=== PATIENT | female | born 1980 | race Caucasian/White ===

== ENCOUNTER → 2016-11-23 | Outpatient (CLI) | payer BC ==
[2016-11-23 10:20] LABS: CH 34.5; CHCM 33.7; HCT 36.8 % (34.0-46.0); HDW 3.06; HGB 12.1 gm/dL (11.4-16.0); MCHC 32.9 g/dL (31.0-37.0); MCV 103.4 fL (80.0-100.0); Macrocytosis Slight; Mean Platelet Volume 7.1; RBC 3.56 m/uL (3.80-5.40); RDW 14.6 % (11.5-15.5); WBC 7.1 k/uL (3.8-10.6)
== END | disposition home or self-care (01) ==
LOC: LABWHC1 08:30
PROVIDERS: ATTEND Obstetrics & Gynecology
DX: Z34.82 Encounter for supervision of other normal pregnancy, second trimester (principal); Z3A.00 Weeks of gestation of pregnancy not specified
CPT/HCPCS: 36415; 82950; 85027

== ENCOUNTER → 2016-11-29 | Outpatient (CLI) | payer BC ==
[2016-11-29 11:29] LABS: Glucose 3 Hour, Gest 74 mg/dL
== END | disposition home or self-care (01) ==
LOC: LABWHC1 07:28
PROVIDERS: ATTEND Obstetrics & Gynecology
DX: O24.419 Gestational diabetes mellitus in pregnancy, unspecified control (principal); Z3A.00 Weeks of gestation of pregnancy not specified
CPT/HCPCS: 36415; 82951; 82952

== ENCOUNTER 2017-02-13 14:42 | Inpatient (IN) | payer BC ==
[2017-02-13 15:50] LABS: Basophils # (A) 0.1 k/uL (0-0.2); Basophils % (A) 1 %; CHCM 35.2; Eosinophils # (A) 0.2 k/uL (0-0.7); Eosinophils % (A) 3 %; HCT 37.7 % (34.0-46.0); HDW 2.64; HGB 13.4 gm/dL (11.4-16.0); Luc # (Auto) 0.15; Luc % (Auto) 2; Lymphocytes # (A) 1.1 k/uL (1.0-4.8); Lymphocytes % (A) 13 %; MCH 34.6 pg (25.0-35.0); MCHC 35.5 g/dL (31.0-37.0); MCV 97.3 fL (80.0-100.0); Mean Platelet Volume 9.8; Monocytes # (A) 0.5 k/uL (0-1.0); Monocytes % (A) 5 %; Neutrophils # (A) 6.6 k/uL (1.3-7.7); Neutrophils % (A) 77 %; RBC 3.87 m/uL (3.80-5.40); RDW 13.6 % (11.5-15.5); WBC 8.6 k/uL (3.8-10.6); WBC (Perox) 8.39
[2017-02-13 15:59] LABS: INR 0.9 (<1.1); Partial Thromboplastin Time 22.9 sec (22.0-30.0); Prothrombin Time 9.4 sec (9.0-12.0)
[2017-02-13 16:05] LABS: ALT 36 U/L (9-52); AST 31 U/L (14-36); LDH 459 U/L (313-618); Non-African American GFR(MDRD) >60 (>60 ml/min/1.73 sqM); Uric Acid 5.7 mg/dL (3.7-7.4)
[2017-02-13] MEDS ORDERED: CITRIC ACID-SODIUM CITRATE 15 ML CUP PO ONE ×2 (16:15→16:40)
[2017-02-13 16:23] VITALS: BMI 27.4
[2017-02-13] MEDS ORDERED: LACTATED RINGERS 1,000 ML IV SCH ×2 (16:40→16:45)
[2017-02-13] MEDS ORDERED: ceFAZolin 2 GM in SODIUM CHLORIDE 0.9% 100 ML IVPB ONE (16:40)
[2017-02-13] MEDS ORDERED: LACTATED RINGERS 1,000 ML IV ONE (16:40)
[2017-02-13 16:49] LABS: Appearance,Urine Clear (Clear); Bacteria,Urine Occasional /hpf; Bilirubin,Urine Negative (Negative); Glucose,Urine (UA) Negative (Negative); Ketones,Urine Negative (Negative); Leukocyte Esterase,Urine Trace (Negative); Mucus,Urine Rare /hpf; Nitrite,Urine Negative (Negative); Particle Count 4128; Protein,Urine 2+ (Negative); RBC,Urine 1 /hpf (0-5); Specific Gravity,Urine 1.009 (1.001-1.035); Squamous Epithelial Cell,Urine 1 /hpf (0-4); UA Billing (MACRO vs. MICRO) MICRO; Urobilinogen,Urine <2.0 mg/dL (<2.0); WBC,Urine 1 /hpf (0-5)
[2017-02-13] MEDS ORDERED: OXYTOCIN 10 UNIT/ML 1 ML VIAL ONE (17:13)
[2017-02-13] MEDS ORDERED: NALBUPHINE 10 MG/ML AMPUL ONE (17:13)
[2017-02-13] MEDS ORDERED: ONDANSETRON 4 MG/2 ML VIAL ONE (17:13)
[2017-02-13] MEDS ORDERED: MORPHINE SULFATE (PF) 0.3 MG/0.3 ML SYR ONE (17:13)
[2017-02-13] MEDS ORDERED: NALOXONE 0.4 MG/ML 1 ML VIAL IV PRN (17:37)
[2017-02-13] MEDS ORDERED: ONDANSETRON 4 MG/2 ML VIAL IVP PRN (17:37)
[2017-02-13] MEDS ORDERED: MORPHINE SULFATE 4 MG/ML SYRINGE IVP PRN (17:37)
[2017-02-13] MEDS ORDERED: diphenhydrAMINE 50 MG/ML 1 ML VIAL IVP PRN ×2 (17:37→17:59)
[2017-02-13] MEDS ORDERED: ACETAMINOPHEN TAB 325 MG TAB PO PRN (17:59)
[2017-02-13] MEDS ORDERED: IBUPROFEN 600 MG TAB PO PRN (17:59)
[2017-02-13] MEDS ORDERED: ZOLPIDEM 5 MG TAB PO PRN (17:59)
[2017-02-13] MEDS ORDERED: Acetaminophen-Codeine 300-30mg TAB PO PRN ×2 (17:59)
[2017-02-13] MEDS ORDERED: SIMETHICONE 80 MG CHEWABLE PO PRN (17:59)
[2017-02-13] MEDS ORDERED: METOCLOPRAMIDE 5 MG/ML 2 ML VIAL IVP PRN (17:59)
[2017-02-13] MEDS ORDERED: diphenhydrAMINE 25 MG CAP PO PRN (17:59)
[2017-02-13] MEDS ORDERED: OXYTOCIN 20 UNITS/1000 ML NS 1,000 ML IV SCH (18:00)
--- NOTE | 2017-02-13 18:24 | P.HPOB ---
History of Present Illness H&P Date: 02/13/17 Chief Complaint: Proteinuria This patient is a pleasant 36-year-old 2 para 0 female estimated date of confinement 03/03/2017 estimated gestational age 37-3/7 weeks who presented to my office this afternoon for routine visit. She has urine showed 2 + protein in the office. Patient is without symptoms and her blood pressure in the office was normal. Patient sent to labor and delivery for preeclampsia evaluation and blood pressures here were significantly elevated 160s to 190s over 80s to 100s. Patient was scheduled for already secondary to previous uterine perforation. Patient's also was complicated by advanced maternal age however she did have a normal level III ultrasound and amniocentesis. 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 Blood type: A+ History of Any Multi-Drug Resistant Organisms: None Reported Additional Past Surgical History / Comment(s): oral surgery. D&C (uterine perforation), laparoscopy Past Anesthesia/Blood Transfusion Reactions: No Reported Reaction Past Psychological History: No Psychological Hx Reported Smoking Status: Never smoker Past Alcohol Use History: Occasional Past Drug Use History: None Reported - Past Family History Mother Family Medical History: Cancer Medications and Allergies Home Medications Medication Instructions Recorded Confirmed Type Acetaminophen with Codeine 1 tab PO Q4H PRN 12/09/15 12/09/15 History [Tylenol w/codeine #3] Ibuprofen [Motrin] 800 mg PO Q6HR PRN 12/09/15 12/09/15 History Allergies Allergy/AdvReac Type Severity Reaction Status Date / Time No Known Allergies Allergy Verified 12/07/15 16:47 Exam - Vital Signs Vital signs: Vital Signs Temp Pulse Resp BP 02/13/17 16:11 98.2 F 68 16 143/90 Intake and Output 02/13/17 02/13/17 02/13/17 06:59 14:59 22:59 Other: Weight 72.575 kg Patient Weight 02/14/17 06:59 Weight 72.575 kg - OBG Physical Exam Abdomen: bowel sounds normal, no diffuse tenderness, no bruit present, no guarding noted, no hepatomegaly, no splenomegaly, no mass Vulva: both: normal Vagina: normal moisture, no discharge Cervix: no lesion (X is closed), no discharge Uterus: enlarged Results blood work shows she is A positive, rubella immune, hepatitis B negative, RPR nonreactive, HIV nonreactive, group B strep was positive, Glucola was 141 with a normal three-hour gtt. Patient had a maternal 21 was 46 XY. Result Diagrams: 02/13/17 15:35 02/13/17 15:35 Abnormal Lab Results - Last 24 Hours (Table) 02/13/17 02/13/17 Range/Units 15:22 15:35 Plt Count 132 L (150-450) k/uL Urine Protein 2+ H (Negative) Ur Leukocyte Esterase Trace H (Negative) Urine Bacteria Occasional H (None) /hpf Urine Mucus Rare H (None) /hpf Assessment and Plan (1) Third trimester Narrative/Plan: This is a pleasant 36-year-old 2 para 0 female 37-5/7 weeks' gestation with severe preeclampsia at term. Patient has a history of a fundal uterine perforation requiring section. Plan at this time is primary low transverse section and magnesium sulfate prophylaxis. Treat her blood pressure as needed with labetalol. Patient and I have discussed the surgery and risks including risks of infection, bleeding, possible injury bowel, bladder , vessels, and/or other organs. All the patient's questions are answered written consent is obtained. Status: Acute (2) Preeclampsia Status: Acute (3) Uterine perforation Status: Acute
--- NOTE | 2017-02-13 18:33 | P.OP ---
Date of Procedure: 02/13/17 Preoperative Diagnosis: #1: 37-3/7 week intrauterine . #2: Severe preeclampsia. #3: History of previous uterine perforation requiring section. Postoperative Diagnosis: #1: Same Procedure(s) Performed: Primary low transverse section Implants: Anesthesia: spinal Surgeon: Clifford Carpenter Photograph Developer #1: Tito Moses Estimated Blood Loss (ml): 800 Pathology: other (Central) Condition: stable Disposition: floor Indications for Procedure: Please see dictated H&P for intimate details of this patient's admission. Brief summary this is a pleasant 36-year-old 2 para 0 female 37-3/7 weeks gestation admitted from my office for evaluation of proteinuria is found to have severe preeclampsia. Patient has a previous uterine perforation and was scheduled for a section for delivery. My recommendations are to proceed at this time with immediate delivery secondary to her significant hypertension. Patient does understand the surgery and risks including risks of infection, bleeding, possible injury bowel, bladder, vessels, and/or other organs. She understands risk of DVT and pulmonary embolism. All the patient's questions are answered written consent is obtained. Operative Findings: This is a vigorous viable male infant Apgars are 9 and 9 delivery time is 1732 hrs. Evidence of previous uterine perforation in the left anterior uterus ( healed). Description of Procedure: This patient has a Lopez catheter placed to straight drain. She subsequently taken to the operating room where she sat up and spinal anesthetic is administered without incident. With adequate level of anesthesia she's abdominal prep and drape. Scalpels then taken and a Pfannenstiel skin incision is then made. A second scalpel is taken down the fascia the fascia scored with a knife. Fascial incision is extended bilaterally using the Velarde scissors. Fascia is then dissected off the rectus muscles sharply. Rectus muscles are and the peritoneum was identified and entered sharply. Peritoneum is extended superior and inferior without difficulty. Bladder blade is then placed. Bladder peritoneum was taken sharply off the lower uterine segment. Scalpels and taken a low transverse uterine incision is then made. Using a hemostat I gently into the uterine cavity is loss of clear fluid. This incision is extended bluntly. The 's head is then guided through the incision with fundal pressure with delivery of the infant's head. Mouth and nares are bulb suctioned. There is a nuchal cord 1 which is easily reduced. We then have deliver the anterior and posterior shoulder and rest this infant's body. This is a vigorous viable male Apgars are 9 and 9 delivery time was 1732 hrs. After delivery of the infant the umbilical cord is doubly clamped and cut appears to be trivascular. The placenta is then manually extracted intact. The uterus is then externalized. Uterine incision demarcated with Ramon clamps. Uterine incision then closed using 0 Vicryl running locked fashion 2 layers. Excellent hemostasis is noted. Bladder peritoneum was then reapproximated using a 3-0 Vicryl. Excess fluid is removed from the abdomen and pelvis. Tubes and ovaries appear normal for term gestation. Approximately 1 cm area on the anterior fundal portion of the uterus with evidence of previous uterine perforation this is healed. Uterus placed back into the abdomen. The parietal peritoneum was then identified and closed using 0 Vicryl running fashion. Rectus muscles then reapproximated using an 0 Vicryl interrupted fashion. Fascia is then closed using 0 PDS. Fascial incision is intact and hemostatic. Subcutaneous tissues and reapproximated using a 3-0 Vicryl. Skin is and closed using caroline. All counts are correct 3. There are no complications. Infant and mother are taken the birthing suite in satisfactory condition and we'll institute magnesium sulfate treatment at this time.
[2017-02-13] MEDS ORDERED: MAGNESIUM SULFATE-WATER PMX 4 GM in WATER FOR INJECTION 1 50ML.BAG IVPB ONE (19:15)
[2017-02-13] MEDS: LABETALOL 100 MG TAB PO SCH (19:24)
[2017-02-13] MEDS ORDERED: MAGNESIUM SULFATE-WATER PMX 20 GM in WATER FOR INJECTION 1 500ML.BAG IV SCH (19:35)
[2017-02-13] MEDS: LACTATED RINGERS 1,000 ML IV SCH (19:49)
[2017-02-13] MEDS: SENNOSIDES-DOCUSATE SODIUM 1 EACH TAB PO SCH (20:46)
--- NOTE | 2017-02-14 06:36 | P.PNOBGPC ---
Subjective - Subjective Patient reports: Reports appetite normal, Reports voiding normally, Reports pain well controlled : doing well Objective - Vital Signs Latest vital signs: Vital Signs Temp Pulse Resp BP Pulse Ox 02/14/17 05:42 76 14 126/66 02/14/17 04:30 85 14 122/75 02/14/17 03:24 83 16 134/80 96 02/14/17 02:30 78 16 127/69 02/14/17 01:30 82 14 128/70 02/14/17 00:30 97.7 F 83 16 132/75 96 02/13/17 23:39 76 14 137/72 02/13/17 22:46 97.3 F L 83 16 131/67 02/13/17 21:35 97.9 F 77 14 135/71 96 02/13/17 20:13 78 14 141/80 96 02/13/17 19:43 73 16 145/85 96 02/13/17 19:30 68 16 165/83 98 02/13/17 19:13 97.3 F L 74 16 150/76 97 02/13/17 18:58 63 16 162/74 02/13/17 18:43 73 16 170/126 02/13/17 18:37 16 97 02/13/17 18:28 97.9 F 97 16 134/94 02/13/17 18:13 97.7 F 71 16 134/94 02/13/17 17:37 97 02/13/17 16:11 98.2 F 68 16 143/90 Intake and Output 02/13/17 02/13/17 02/14/17 14:59 22:59 06:59 Output Total 1999 Balance -1999 Output: Urine 1200 Estimated Blood Loss 800 Other: Weight 72.575 kg Patient Weight 02/14/17 06:59 Weight 72.575 kg - Exam Lungs: bilateral: normal Chest: Normal S1, Normal S2 Extremities: Present: normal Abdomen: Present: normal appearance, soft. Absent: distention, tenderness Incision: Present: normal, dry, intact Uterus: Present: normal, firm - Labs Labs: Abnormal Lab Results - Last 24 Hours (Table) 02/13/17 02/13/17 Range/Units 15:22 15:35 Plt Count 132 L (150-450) k/uL Urine Protein 2+ H (Negative) Ur Leukocyte Esterase Trace H (Negative) Urine Bacteria Occasional H (None) /hpf Urine Mucus Rare H (None) /hpf Assessment and Plan (1) Third trimester Narrative/Plan: Postoperative day #1. Patient is resting without new complaints. Blood pressures are much improved on labetalol 100 mg by mouth twice a day. Patient' s had excellent urine output it is tolerating liquid diet. Plan today is to discontinue her magnesium sulfate and Lopez catheter. Encourage ambulation. Check a CBC. Advanced to a regular diet. Continue to watch blood pressures carefully. Current Visit: Yes Status: Acute Code(s): Z33.1 - STATE, INCIDENTAL SNOMED Code(s): 70454392 (2) Preeclampsia Current Visit: Yes Status: Acute Code(s): O14.90 - UNSPECIFIED PRE-ECLAMPSIA , UNSPECIFIED TRIMESTER SNOMED Code(s): 536784811 (3) Uterine perforation Current Visit: Yes Status: Acute Code(s): S37.69XA - OTHER INJURY OF UTERUS , INITIAL ENCOUNTER SNOMED Code(s): 8264355
[2017-02-14 06:53] LABS: Basophils % (A) 0 %; CH 34.1; Eosinophils # (A) 0.1 k/uL (0-0.7); Eosinophils % (A) 1 %; HCT 32.6 % (34.0-46.0); HDW 2.67; HGB 11.5 gm/dL (11.4-16.0); Luc # (Auto) 0.11; Luc % (Auto) 1; Lymphocytes # (A) 0.9 k/uL (1.0-4.8); Lymphocytes % (A) 10 %; MCH 34.7 pg (25.0-35.0); MCHC 35.4 g/dL (31.0-37.0); Mean Platelet Volume 9.9; Monocytes # (A) 0.4 k/uL (0-1.0); Monocytes % (A) 5 %; Neutrophils # (A) 8.1 k/uL (1.3-7.7); Neutrophils % (A) 83 %; RBC 3.32 m/uL (3.80-5.40); RDW 13.8 % (11.5-15.5); WBC 9.7 k/uL (3.8-10.6); WBC (Perox) 9.75
[2017-02-14] MEDS: LACTATED RINGERS 1,000 ML IV SCH (07:19)
--- NOTE | 2017-02-14 08:41 | P.PN ---
Progress Note - Text Date: 02/14/2017 Time: 731 The patient is status post section Vital signs stable VA0-10 Patient has no complaints of pain. The patient incurred some minimal itching yesterday, this itching is now subsiding. Pain meds to be managed by service.
[2017-02-14] MEDS: SENNOSIDES-DOCUSATE SODIUM 1 EACH TAB PO SCH ×2 (09:43→21:49)
[2017-02-14] MEDS: LABETALOL 100 MG TAB PO SCH ×2 (09:44→21:49)
[2017-02-14] MEDS: KETOROLAC 30 MG/ML 1 ML VIAL IVP PRN ×3 (09:44→23:21)
--- NOTE | 2017-02-15 06:30 | P.PNOBGPC ---
Subjective - Subjective Patient reports: Reports appetite normal, Reports voiding normally, Reports pain well controlled, Reports ambulating normally : doing well Objective - Vital Signs Latest vital signs: Vital Signs Temp Pulse Resp BP Pulse Ox 02/15/17 00:00 98.5 F 80 18 132/75 100 02/14/17 20:00 98.1 F 72 18 133/80 98 02/14/17 16:00 98.4 F 83 20 135/82 02/14/17 12:00 98.3 F 83 20 133/83 97 02/14/17 08:00 98.5 F 80 20 138/82 99 Intake and Output 02/14/17 02/14/17 02/15/17 14:59 22:59 06:59 Intake Total 1290 Output Total 1900 300 Balance -610 -300 Intake: IV 250 Invasive Line 1 250 Oral 1040 Output: Urine 1900 300 Other: # Voids 1 1 - Exam Lungs: bilateral: normal Chest: Normal S1, Normal S2 Extremities: Present: normal Abdomen: Present: normal appearance, soft. Absent: distention, tenderness Incision: Present: normal, dry, intact Uterus: Present: normal, firm - Labs Labs: Abnormal Lab Results - Last 24 Hours (Table) 02/14/17 Range/Units 06:36 RBC 3.32 L (3.80-5.40) m/uL Hct 32.6 L (34.0-46.0) % Plt Count 107 L (150-450) k/uL Neutrophils # 8.1 H (1.3-7.7) k/uL Lymphocytes # 0.9 L (1.0-4.8) k/uL Assessment and Plan (1) Third trimester Narrative/Plan: Post operative day #2. Patient is resting without complaints and wishes to go home. Vital signs are stable she is afebrile. But pressures running 130s over 70s to 80s on labetalol 100 twice a day. Patient's urinating without difficulty , ambulating, and tolerating regular diet. Patient desires to go home today. Incision is intact and dry. CBC is pending. My impression is a she is doing well and most likely stable for discharge home later this morning. I'll reevaluate her at lunch after I get her CBC and most likely discharge home at that time. Current Visit: Yes Status: Acute Code(s): Z33.1 - STATE, INCIDENTAL SNOMED Code(s): 25842033 (2) Preeclampsia Current Visit: Yes Status: Acute Code(s): O14.90 - UNSPECIFIED PRE-ECLAMPSIA , UNSPECIFIED TRIMESTER SNOMED Code(s): 724545886 (3) Uterine perforation Current Visit: Yes Status: Acute Code(s): S37.69XA - OTHER INJURY OF UTERUS , INITIAL ENCOUNTER SNOMED Code(s): 8497034
--- NOTE | 2017-02-15 06:35 | P.DS ---
Providers Date of admission: 02/13/17 15:35 Expected date of discharge: 02/15/17 Attending physician: Clifford Carpenter Primary care physician: Stated None - Discharge Diagnosis(es) (1) Third trimester Current Visit: Yes Status: Acute (2) Preeclampsia Current Visit: Yes Status: Acute (3) Uterine perforation Current Visit: Yes Status: Acute Hospital Course: Please see dictated H&P for intimate details of this patient's admission. Brief summary this is a pleasant 36-year-old 2 para 0 female 37-3/7 weeks gestation admitted for evaluation of proteinuria and found to have severe preeclampsia. Patient underwent a primary section for previous uterine perforation for viable male . she received magnesium sulfate. Urine output was excellent by postoperative #2 patient was tolerating regular diet, ambulating, urinating without difficulty. Patient's platelets were 132 and admission and has of this dictation for 107. Repeat is pending. Plan is to discharge home if she continues to do well and repeat her blood pressure check in 1 week. Also repeat platelets as an outpatient. Procedures: Primary low transverse section. Patient Condition at Discharge: Good Plan - Discharge Summary New Discharge Prescriptions: New Acetaminophen-Codeine 300-30mg [Tylenol w/codeine #3] 1 - 2 each PO Q4HR PRN #30 tab PRN Reason: Mild Pain Ibuprofen [Motrin] 600 mg PO Q6HR PRN #40 tab PRN Reason: Mild Pain Or Fever >= 100.5 Labetalol [Trandate] 100 mg PO BID #60 tab No Action Ibuprofen [Motrin] 800 mg PO Q6HR PRN PRN Reason: Pain Acetaminophen with Codeine [Tylenol w/codeine #3] 1 tab PO Q4H PRN PRN Reason: Pain Discharge Medication List Acetaminophen with Codeine [Tylenol w/codeine #3] 1 tab PO Q4H PRN 12/09/15 [ History] Ibuprofen [Motrin] 800 mg PO Q6HR PRN 12/09/15 [History] Acetaminophen-Codeine 300-30mg [Tylenol w/codeine #3] 1 - 2 each PO Q4HR PRN # 30 tab 02/15/17 [Rx] Ibuprofen [Motrin] 600 mg PO Q6HR PRN #40 tab 02/15/17 [Rx] Labetalol [Trandate] 100 mg PO BID #60 tab 02/15/17 [Rx] Follow up Appointment(s)/Referral(s): Clifford Carpenter MD [STAFF PHYSICIAN] - 1 Week (Please see me in 6 weeks as well for a check.) Patient Instructions/Handouts: (DC) Activity/Diet/Wound Care/Special Instructions: No strenuous activity or heavy lifting for 6 weeks. No intercourse or anything per vagina for 6 weeks. Please call if any fever, chills, excessive vaginal bleeding, and/or abdominal pain. Discharge Disposition: HOME SELF-CARE
[2017-02-15 07:39] LABS: Basophils % (A) 0 %; CH 33.5; CHCM 33.9; Eosinophils # (A) 0.1 k/uL (0-0.7); Eosinophils % (A) 1 %; HCT 31.2 % (34.0-46.0); HDW 2.66; HGB 10.8 gm/dL (11.4-16.0); Luc # (Auto) 0.14; Luc % (Auto) 2; Lymphocytes # (A) 0.9 k/uL (1.0-4.8); Lymphocytes % (A) 11 %; MCH 34.4 pg (25.0-35.0); MCHC 34.6 g/dL (31.0-37.0); MCV 99.5 fL (80.0-100.0); Mean Platelet Volume 8.8; Monocytes # (A) 0.4 k/uL (0-1.0); Monocytes % (A) 5 %; Neutrophils # (A) 6.7 k/uL (1.3-7.7); Neutrophils % (A) 82 %; RBC 3.13 m/uL (3.80-5.40); RDW 13.5 % (11.5-15.5); WBC 8.2 k/uL (3.8-10.6); WBC (Perox) 8.68
[2017-02-15] MEDS: LABETALOL 100 MG TAB PO SCH (10:19)
[2017-02-15] MEDS: SENNOSIDES-DOCUSATE SODIUM 1 EACH TAB PO SCH (10:20)
[2017-02-15 11:11] VITALS: BP 127/73; PULSE 72; RESP 16; TEMP 98.6
== END 2017-02-15 15:50 | disposition home or self-care (01) | DRG 766 ==
LOC: FBPOP 14:42 → 4FBP 15:35
PROVIDERS: ADMIT Obstetrics & Gynecology; ATTEND Obstetrics & Gynecology
PROC: 10D00Z1 Extraction of Products of Conception, Low, Open Approach (ICD-10-PCS; principal; 2017-02-13 17:15)
DX: O14.14 Severe pre-eclampsia complicating childbirth (principal); O99.72 Diseases of the skin and subcutaneous tissue complicating childbirth; L40.9 Psoriasis, unspecified; O34.219 Maternal care for unspecified type scar from previous cesarean delivery; O69.81X0 Labor and delivery complicated by cord around neck, without compression, not applicable or unspecified; Z37.0 Single live birth; Z3A.37 37 weeks gestation of pregnancy
CPT/HCPCS: 81001; 82565; 83615; 84450; 84460; 84550; 85025; 85610; 85730; 86850; 86900; 86901

== ENCOUNTER → 2017-09-20 | Outpatient (CLI) | payer BC ==
--- NOTE | 2017-09-23 08:10 | MM ---
Reason for exam: screening (asymptomatic). Baseline mammogram. History: Patient had first child at age 36. Taking hormonal contraceptives beginning at age 17. Physical Findings: Nurse did not find any significant physical abnormalities on exam. MG Screening Mammo w CAD Bilateral CC and MLO view(s) were taken. The breast tissue is extremely dense which could obscure a lesion on mammography. Finding #1: There is equal architectural distortion in the upper outer quadrant, posterior position of the right breast. Finding #2: There are typically benign vascular, diffuse/scattered calcifications in both breasts. These results were verbally communicated with the patient and result sheet given to the patient on 09/20/17. ASSESSMENT: Incomplete: need additional imaging evaluation, BI-RAD 0 RECOMMENDATION: Special view mammogram of the right breast. If lesion persists on supplemental views, image directed ultrasound is recommended. [facility] will attempt to contact patient to return for supplemental views and ultrasound if indicated.
--- NOTE | 2017-09-23 08:11 | MM ---
Reason for exam: additional evaluation requested from abnormal screening. History: Patient had first child at age 36. Taking hormonal contraceptives beginning at age 17. Physical Findings: Breast exam preformed at baseline screening. MG Work Up Mamm w CAD RT ML and spot compression MLO view(s) were taken of the right breast. The breast tissue is extremely dense which could obscure a lesion on mammography. There is no discrete abnormality on compression. These results were verbally communicated with the patient and result sheet given to the patient on 09/20/17. ASSESSMENT: Benign, BI-RAD 2 RECOMMENDATION: Return to routine screening mammogram schedule for both breasts.
== END | disposition home or self-care (01) ==
LOC: RADMAMWWP 14:27
PROVIDERS: ATTEND Obstetrics & Gynecology
DX: Z12.31 Encounter for screening mammogram for malignant neoplasm of breast (principal); R92.8 Other abnormal and inconclusive findings on diagnostic imaging of breast
CPT/HCPCS: 77065; 77067

== ENCOUNTER 2018-12-30 16:35 | Outpatient (CLI) | payer BC ==
[2018-12-30 17:30] LABS: Basophils % (A) 0 %; Eosinophils # (A) 0.1 k/uL (0-0.7); Eosinophils % (A) 2 %; HCT 37.5 % (34.0-46.0); HGB 12.5 gm/dL (11.4-16.0); Lymphocytes % (A) 15 %; MCH 32.9 pg (25.0-35.0); MCHC 33.3 g/dL (31.0-37.0); MCV 98.8 fL (80.0-100.0); Macrocytosis Slight; Mean Platelet Volume 8.3; Monocytes # (A) 0.3 k/uL (0-1.0); Monocytes % (A) 5 %; Neutrophils % (A) 75 %; Platelet Count 176 k/uL (150-450); RDW 15.1 % (11.5-15.5); WBC 6.8 k/uL (3.8-10.6)
[2018-12-30 17:36] LABS: Appearance,Urine Clear (Clear); Bilirubin,Urine Negative (Negative); Blood,Urine Negative (Negative); Color,Urine Colorless; Glucose,Urine (UA) Negative (Negative); Ketones,Urine Negative (Negative); Leukocyte Esterase,Urine Negative (Negative); Nitrite,Urine Negative (Negative); Protein,Urine Negative (Negative); Specific Gravity,Urine 1.003 (1.001-1.035); Urobilinogen,Urine <2.0 mg/dL (<2.0)
[2018-12-30 17:42] LABS: ALT 16 U/L (9-52); AST 19 U/L (14-36); African American GFR (CKD) >90 (>60 ml/min/1.73 sqM); Blood Urea Nitrogen 7 mg/dL (7-17); LDH 471 U/L (313-618); Uric Acid 4.7 mg/dL (3.7-7.4)
[2018-12-30 19:58] VITALS: RESP 16; TEMP 97.8
[2018-12-30 20:14] VITALS: BP 119/73; PULSE 74
--- NOTE | 2019-01-08 08:20 | P.MSEPDOC ---
Presenting Problems - Arrival Data Date of Arrival on Unit: 12/30/18 Time of Arrival on Unit: 16:35 Mode of Transport: Ambulatory - Complaint OB-Reason for Admission/Chief Complaint: Headache, PIH Medical History - Information : 3 Para: 1 Term: 1 : 0 Abortions: Spontaneous or Elective: 1 Number of Living Children: 1 - Gestational Age Gestational Age by NEHA (wks/days): 33 Weeks and 2 Days - History Complications: Prior Sexually Transmitted Diseases: HSV, HBV Review of Systems - Review of Systems Constitutional: No problems Breast: No problems ENT: No problems Cardiovascular: No problems Respiratory: No problems Gastrointestinal: No problems Genitourinary: No problems Musculoskeletal: No problems Neurological: Dizziness Skin: No problems Vital Signs - Temperature Temperature: 97.8 F Temperature Source: Temporal Artery Scan - Pulse Supine Brachial Pulse Rate: 74 Pulse Assessment Method: Automatic Cuff - Respirations Respiratory Rate: 16 Oxygen Delivery Method: Room Air - Blood Pressure Right Arm Supine Blood Pressure: 119/73 Blood Pressure Mean: 88 Blood Pressure Source: Automatic Cuff Medical Screen Scoring (Pre) - Cervical Exam Dilation: Exam Deferred Effacement: Exam Deferred - Uterine Contractions Frequency: N/A - Maternal Vital Signs Maternal Temperature: N/A Signs of Preeclampsia: Headache = 1 - Pain Assessment Pain Scale Used: Numeric (1 - 10) Pain Intensity: 0 Pain Behavior: None Exhibited - Maternal Trauma Maternal Trauma: N/A - Assessment Baseline FHR: 140 Heart Rate - NICHD Category: Category I (Normal) = 0 NST: Reactive - Total Score Total Score (Pre): 1 - Level of Risk Level of Risk: Low (0-5) Physician Notification (Pre) - Physician Notified Physician Notified Date: 12/30/18 Physician Notified Time: 16:50 Physician/Practitioner Notifed:: Dr Carpenter Spoke With: Dr Abreu New Order Received: Yes - Notification Comment Comment: Dr Carpenter at bedside and Dr Abreu in department placing orders Medical Screen Scoring (Post) - Cervical Exam Dilation: Exam Deferred Effacement: Exam Deferred - Maternal Trauma Maternal Trauma: N/A - Assessment Heart Rate: 140 Heart Rate - NICHD Category: Category I (Normal) = 0 NST: Reactive - Total Score Total Score (Post): 0 - Post Treatment Level of Risk Post Treatment Level of Risk: Low (0-5) Physician Notification (Post) - Physician Notified Physician Notified Date: 12/30/18 Physician Notified Time: 18:00 Physician/Practitioner Notified:: Dr Abreu Spoke With: Dr Abreu New Order Received: Yes - Notification Comment Comment: May discharge to home with instructions to return for s/sx of preeclamsia Disposition - Disposition OB Disposition: Physician follow up in office, Discharge to home Transferred to:: Home Discharge Date: 12/30/18 Discharge Time: 18:05 I agree with the RN Medical Screening Exam: Yes Risk & Benefit of care provided described in d/c instruction: Yes Diagnosis: GESTATIONAL HTN W/O SIGNIFICANT PROTEINURIA, THIRD TRIMESTER
== END 2018-12-30 18:05 | disposition home or self-care (01) ==
LOC: FBPOP 16:35
PROVIDERS: ATTEND Obstetrics & Gynecology
DX: O13.3 Gestational [pregnancy-induced] hypertension without significant proteinuria, third trimester (principal); Z3A.33 33 weeks gestation of pregnancy
CPT/HCPCS: 59025; 81003; 82565; 82570; 83615; 84156; 84450; 84460; 84520; 84550; 85025; 99215

== ENCOUNTER 2019-01-02 16:11 | Outpatient (CLI) | payer BC ==
[2019-01-02 19:28] VITALS: BP 141/85; PULSE 96; RESP 18; TEMP 98.3
--- NOTE | 2019-01-02 21:48 | P.MSEPDOC ---
Presenting Problems - Arrival Data Date of Arrival on Unit: 01/02/19 Time of Arrival on Unit: 17:15 Mode of Transport: Ambulatory - Complaint OB-Reason for Admission/Chief Complaint: PIH Medical History - Information : 3 Para: 1 Term: 1 : 0 Abortions: Spontaneous or Elective: 1 Number of Living Children: 1 - Gestational Age Gestational Age by NEHA (wks/days): 33 Weeks and 4 Days - History Comment: gestational hypertension Review of Systems - Review of Systems Constitutional: No problems Breast: No problems ENT: No problems Cardiovascular: No problems Respiratory: No problems Gastrointestinal: No problems Genitourinary: No problems Musculoskeletal: No problems Neurological: No problems Skin: No problems Vital Signs - Temperature Temperature: 98.3 F Temperature Source: Oral - Pulse Right Brachial Pulse Rate: 96 - Respirations Respiratory Rate: 18 Oxygen Delivery Method: Room Air O2 Sat by Pulse Oximetry: 97 - Blood Pressure Right Arm Blood Pressure: 141/85 Blood Pressure Mean: 103 Blood Pressure Source: Automatic Cuff Medical Screen Scoring (Pre) - Cervical Exam Dilation: 1-3 cm = 1 - Total Score Total Score (Pre): 1 Physician Notification (Pre) - Physician Notified Spoke With: josh New Order Received: Yes - Notification Comment Comment: breech. samantha of 1. plan for section damari. to follow the ongoing c/s now Disposition - Disposition OB Disposition: Admit I agree with the RN Medical Screening Exam: Yes Risk & Benefit of care provided described in d/c instruction: Yes Diagnosis: GESTATIONAL HTN W/O SIGNIFICANT PROTEINURIA, THIRD TRIMESTER
== END 2019-01-02 17:45 | disposition home or self-care (01) ==
LOC: FBPOP 16:11
PROVIDERS: ATTEND Obstetrics & Gynecology
DX: O13.3 Gestational [pregnancy-induced] hypertension without significant proteinuria, third trimester (principal); Z3A.33 33 weeks gestation of pregnancy
CPT/HCPCS: 59025; 99213

== ENCOUNTER 2019-01-04 10:42 | Outpatient (CLI) | payer BC ==
[2019-01-04 11:10] VITALS: BP 131/74; PULSE 80; RESP 16; TEMP 98.1
--- NOTE | 2019-01-07 08:38 | P.MSEPDOC ---
Presenting Problems - Arrival Data Date of Arrival on Unit: 01/04/19 Time of Arrival on Unit: 10:42 Mode of Transport: Ambulatory - Complaint OB-Reason for Admission/Chief Complaint: NST, Observation/Evaluation Comment: bp and nst Medical History - Information : 3 Para: 1 Term: 1 : 0 Abortions: Spontaneous or Elective: 1 Number of Living Children: 1 - Gestational Age Gestational Age by NEHA (wks/days): 34 Weeks and 0 Days Review of Systems - Review of Systems Constitutional: No problems Breast: No problems ENT: No problems Cardiovascular: No problems Respiratory: No problems Gastrointestinal: No problems Genitourinary: No problems Musculoskeletal: No problems Neurological: No problems Skin: No problems Vital Signs - Temperature Temperature: 98.1 F Temperature Source: Temporal Artery Scan - Pulse Right Sitting Pulse Rate: 80 Pulse Assessment Method: Automatic Cuff - Respirations Respiratory Rate: 16 Oxygen Delivery Method: Room Air - Blood Pressure Right Arm Blood Pressure: 131/74 Blood Pressure Mean: 93 Medical Screen Scoring (Pre) - Cervical Exam Dilation: Exam Deferred Effacement: Exam Deferred Membranes: Intact - Uterine Contractions Frequency: N/A Duration: N/A Intensity: N/A - Maternal Vital Signs Maternal Temperature: N/A Maternal Blood Pressure: N/A Signs of Preeclampsia: N/A Maternal Respirations: N/A - Pain Assessment Pain Location and Character: Medial Pain Scale Used: Numeric (1 - 10) Pain Intensity: 0 Pain Behavior: None Exhibited - Assessment Baseline FHR: 145 Heart Rate - NICHD Category: Category I (Normal) = 0 NST: Reactive Position: N/A Station: N/A - Total Score Total Score (Pre): 0 - Level of Risk Level of Risk: Low (0-5) Physician Notification (Pre) - Physician Notified Physician Notified Date: 01/04/19 Physician Notified Time: 11:07 Physician/Practitioner Notifed:: Oscar Ventura Order Received: Yes (d/c home) Disposition - Disposition Discharge Date: 01/04/19 Discharge Time: 11:15 I agree with the RN Medical Screening Exam: Yes Risk & Benefit of care provided described in d/c instruction: Yes Diagnosis: GESTATIONAL HTN W/O SIGNIFICANT PROTEINURIA, THIRD TRIMESTER
== END 2019-01-04 11:15 | disposition home or self-care (01) ==
LOC: FBPOP 10:42
PROVIDERS: ATTEND Obstetrics & Gynecology
DX: O13.3 Gestational [pregnancy-induced] hypertension without significant proteinuria, third trimester (principal); Z3A.34 34 weeks gestation of pregnancy
CPT/HCPCS: 59025; 99213

== ENCOUNTER 2019-01-26 06:03 | Inpatient (IN) | payer BC ==
[2019-01-23 10:10] VITALS: BMI 25.7
--- NOTE | 2019-01-24 17:57 | P.HPOB ---
History of Present Illness H&P Date: 01/24/19 Chief Complaint: Gestational HTN, previous C/s, family planning. This patient is a pleasant 38 yr female EDC 02/15/2019 estimated gestational age 37 and 1/7 weeks who presents for repeat section and tubal ligation secondary to gestational hypertension, previous C/S (due to uterine perforation) and requesting family planning. Patients history is such that her last she developed severe gestational HTN at 37 weeks. This has been on 81mg ASA until 36 weeks. Blood pressure did start going up at 34 weeks but remained stable on modified bedrest, no meds. Serial labs have been normal and testing normal. Patient declined referral to [facility] for advanced gestational age, but did have normal Materni T21 (46XX) and normal anatomy ultrasound. Patient had to have a C/s with her first secondary to history of uterine perforation at the time of an attempted suction D&C for a missed . Patient is having a repeat C/S and also requesting permanent sterilization. 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 History of Any Multi-Drug Resistant Organisms: None Reported Past Surgical History: Section Additional Past Surgical History / Comment(s): oral surgery. D&C (uterine perforation), laparoscopy Past Anesthesia/Blood Transfusion Reactions: No Reported Reaction Smoking Status: Never smoker Past Alcohol Use History: None Reported Past Drug Use History: None Reported - Past Family History Mother Family Medical History: Cancer Medications and Allergies Home Medications Medication Instructions Recorded Confirmed Type Pnv,Calcium 72/Iron/Folic Acid 1 each PO DAILY MDD 1 tab 12/30/18 01/23/19 History [ Plus Tablet] Allergies Allergy/AdvReac Type Severity Reaction Status Date / Time No Known Allergies Allergy Verified 01/23/19 09:53 Exam - OBG Physical Exam Abdomen: bowel sounds normal, no diffuse tenderness, no bruit present, no guarding noted, no hepatomegaly, no splenomegaly, no mass Vulva: both: normal Vagina: normal moisture, no discharge Cervix: no lesion, no discharge Uterus: enlarged (Fundal height 37 cm.) Results Labs: A positive, Rubella Immune, RPR-HepB neg, Materni T21 (46 X,X), Normal ultrasounds. Glucola 141 with normal 3hr GTT. GBS positive. Assessment and Plan Assessment: This is a pleasant 38 yr female 37 weeks 1 day with gestation hypertension who presents for repeat C/S and also requesting permanent sterilization. Plan is repeat C/s and bilateral partial salpingectomy. I have discussed the fact that a tubal ligation is permanent however failure of ~12/999 procedures done. She understand that surgery itself has risks: infection, bleeding, possible injury to bowel/bladder/vessels/other organs/DVT and or PE. All of the patients questions are answered and a written consent obtained. (1) 37 weeks gestation of Status: Acute Code(s): Z3A.37 - 37 WEEKS GESTATION OF SNOMED Code(s): 72016196 (2) Gestational hypertension Status: Acute Code(s): O13.9 - GESTATIONAL HTN W/O SIGNIFICANT PROTEINURIA, UNSP TRIMESTER SNOMED Code(s): 078650747 (3) Elderly multigravida Status: Acute Code(s): O09.529 - SUPERVISION OF ELDERLY MULTIGRAVIDA, UNSPECIFIED TRIMESTER SNOMED Code(s): 861557707 (4) Previous delivery affecting Status: Acute Code(s): O34.219 - MATERNAL CARE FOR UNSP TYPE SCAR FROM PREVIOUS DEL SNOMED Code(s): 822893176 (5) Family planning Status: Acute Code(s): Z30.09 - ENCOUNTER FOR OTH GENERAL CNSL AND ADVICE ON CONTRACEPTION SNOMED Code(s): 540534526 (6) Group B streptococcal carriage complicating Status: Acute Code(s): O99.820 - STREPTOCOCCUS B CARRIER STATE COMPLICATING SNOMED Code(s): 219118102279528
[2019-01-26] MEDS ORDERED: LACTATED RINGERS 1,000 ML IV SCH (06:16)
[2019-01-26] MEDS ORDERED: LACTATED RINGERS 1,000 ML IV ONE (06:16)
[2019-01-26] MEDS ORDERED: CITRIC ACID-SODIUM CITRATE 15 ML CUP PO ONE (06:16)
[2019-01-26 06:26] LABS: Basophils # (A) 0.1 k/uL (0-0.2); Basophils % (A) 1 %; Eosinophils # (A) 0.2 k/uL (0-0.7); Eosinophils % (A) 3 %; Lymphocytes # (A) 1.4 k/uL (1.0-4.8); Lymphocytes % (A) 21 %; MCHC 34.1 g/dL (31.0-37.0); MCV 96.9 fL (80.0-100.0); Mean Platelet Volume 9.3; Monocytes # (A) 0.3 k/uL (0-1.0); Monocytes % (A) 5 %; Neutrophils # (A) 4.6 k/uL (1.3-7.7); Neutrophils % (A) 69 %; Platelet Count 151 k/uL (150-450); RBC 4.23 m/uL (3.80-5.40); RDW 14.2 % (11.5-15.5); WBC 6.7 k/uL (3.8-10.6)
[2019-01-26 06:34] LABS: INR 0.8 (<1.2); Partial Thromboplastin Time 23.2 sec (22.0-30.0); Prothrombin Time 9.3 sec (9.0-12.0)
[2019-01-26 07:13] LABS: Bilirubin,Unconjugated 0.3 mg/dL (0.0-1.1); Total Bilirubin 0.3 mg/dL (0.2-1.3); Total Protein 5.5 g/dL (6.3-8.2); Uric Acid 5.8 mg/dL (3.7-7.4)
[2019-01-26] MEDS ORDERED: ceFAZolin IN SWFI 2 GM/20 ML SYRINGE IVP ONE (07:14)
[2019-01-26] MEDS ORDERED: NALBUPHINE 10 MG/ML (1 ML AMP) ONE (07:43)
[2019-01-26] MEDS ORDERED: MORPHINE SULFATE (PF) 0.3 MG/0.3 ML SYR ONE (07:43)
[2019-01-26] MEDS ORDERED: KETOROLAC 30 MG/ML 1 ML VIAL ONE (07:43)
[2019-01-26] MEDS ORDERED: OXYTOCIN 10 UNIT/ML 1 ML VIAL ONE (07:43)
[2019-01-26] MEDS ORDERED: DEXAMETHASONE SOD PHOS (MDV) 100 MG/10 ML VIAL ONE (07:43)
[2019-01-26] MEDS ORDERED: ONDANSETRON 4 MG/2 ML VIAL ONE (07:43)
[2019-01-26] MEDS ORDERED: OXYTOCIN 20 UNITS/1000 ML NS 1,000 ML IV SCH (08:17)
[2019-01-26] MEDS ORDERED: ONDANSETRON 4 MG/2 ML VIAL IVP PRN (08:17)
[2019-01-26] MEDS ORDERED: diphenhydrAMINE 25 MG CAP PO PRN (08:17)
[2019-01-26] MEDS ORDERED: METOCLOPRAMIDE 5 MG/ML 2 ML VIAL IVP PRN (08:17)
[2019-01-26] MEDS ORDERED: diphenhydrAMINE 50 MG/ML 1 ML VIAL IVP PRN (08:17)
[2019-01-26] MEDS ORDERED: ACETAMINOPHEN TAB 325 MG TAB PO PRN (08:17)
[2019-01-26] MEDS ORDERED: LANOLIN CREAM 5 GM TUBE TOPICAL PRN (08:17)
[2019-01-26] MEDS ORDERED: SIMETHICONE 80 MG CHEWABLE PO PRN (08:17)
[2019-01-26] MEDS ORDERED: ZOLPIDEM 5 MG TAB PO PRN (08:17)
[2019-01-26] MEDS ORDERED: NALOXONE 0.4 MG/ML 1 ML VIAL IV PRN (08:17)
[2019-01-26] MEDS ORDERED: HYDROcodone/APAP 5-325MG 1 EACH TAB PO PRN (08:17)
--- NOTE | 2019-01-26 08:31 | P.OP ---
Date of Procedure: 01/26/19 Preoperative Diagnosis: #1: 37 and one sevenths weeks . #2: Gestational hypertension. #3: Previous section. #4: Multi parity desires permanent sterilization. #5: Elderly multipara para Postoperative Diagnosis: Same Procedure(s) Performed: Repeat low transverse section and bilateral partial salpingectomy Anesthesia: spinal Surgeon: Clifford Carpenter Fun House Attendant #1: Cony Abreu Estimated Blood Loss (ml): 800 Pathology: other (Placenta and bilateral fallopian tube segments) Condition: stable Disposition: floor Indications for Procedure: Please see dictated H&P for intimate details of this patient's admission. Brief summary this is a pleasant 38-year-old 3 para 1 female 37 and one sevenths weeks gestation who is admitted to labor and delivery for repeat section secondary to gestational hypertension. Patient's had a previous section for previous uterine perforation. Patient is also requesting permanent sterilization. Patient does understand that a tubal ligation is considered permanent however there is a failure rate of less than 5 per thousand procedures done. Patient also understands surgery itself and apparently has risks including risks of infection, bleeding, possible injury to bowel, bladder, vessels, and/or other organs. Patient understands risk of DVT and pulmonary embolism. All the patient's questions are answered and a written consent is obtained. Operative Findings: This is a vigorous viable female infant delivery time was 0758 hours. Apgars and weight are pending. Description of Procedure: This patient has a Lopez catheter placed to straight drain. She is subsequently taken to the operating room where she is sat up and spinal anesthetic is administered without incident. With an adequate level of anesthesia she has abdominal prep and drape. Scalpels then taken and a Pfannenstiel skin incision is then incised. A second scalpel is taken down to the fascia and the fascia scored with a knife. Fascial incision extended bilaterally using the Velarde scissors. Fascia is then dissected off the rectus muscles sharply. Rectus muscles are and the peritoneum identified and entered sharply. Per itoneal incision extended superior and inferiorly with Metzenbaum scissors. Bladder blade is then placed. Bladder peritoneum was then taken sharply off the lower uterine segment. Scalpels and taken a low transverse uterine incision is then made. Using a hemostat I bluntly entered the uterine cavity and there is loss of clear fluid. This incision is extended bluntly. The infant's head is then guided through the incision with fundal pressure we have delivery of 's head. Mouth and nares are bulb suctioned. There is no evidence of nuchal cord. Then have delivery the rest of this infant's body. Is a vigorous viable female infant. After delivery of the the umbilical cord is doubly clamped and then cut it appears to be trivascular. The placenta is then manually extracted intact. The uterine cavity is then explored is somewhat ratty but all the tissue appears to be removed. Uterine incision is then but isn't demarcated with Ramon clamps and then closed in 2 layers using 0 Vicryl suture. Excellent hemostasis is noted. I then turned my attention to the left fallopian tube and approximately 4 cm from the cornual insertion I grabbed a segment of the tube with a hemostat. Using Bovie cautery make a small window through the mesial salpinx. Using 2-0 silk I doubly ligate a 1-2 cm segment of the left fallopian tube. Is excised with Metzenbaum scissors. Cau terization done of the tubal ends. Excellent hemostasis is noted. Then turned my attention of the right fallopian tube and using a similar technique with similar results. With this done excess fluid is removed from the abdomen and pelvis. Final inspection of the incision shows to be hemostatic and the tubes appear to be hemostatic. Uterus placed back into the abdomen. Parietal peritoneum was then closed using 0 Vicryl running fashion. Rectus muscles were proximal 0 Vicryl interrupted fashion. Fascia is then closed using 0 PDS. Fascial incision is intact and hemostatic. Subcutaneous tissues and closed using a 3-0 Vicryl. Skin is and closed using caroline. All counts are correct 3. There are no complications. and mother are taken to the birthing suite in satisfactory condition.
[2019-01-26] MEDS: SENNOSIDES-DOCUSATE SODIUM 1 EACH TAB PO SCH ×2 (08:39→20:38)
[2019-01-26] MEDS: LACTATED RINGERS 1,000 ML IV SCH ×2 (16:00→22:03)
[2019-01-26] MEDS: KETOROLAC 30 MG/ML 1 ML VIAL IVP PRN (16:23)
[2019-01-27] MEDS: KETOROLAC 30 MG/ML 1 ML VIAL IVP PRN ×2 (00:57→07:34)
--- NOTE | 2019-01-27 06:33 | P.PNOBGPC ---
Subjective - Subjective Patient reports: Reports appetite normal, Reports voiding normally, Reports pain well controlled, Reports ambulating normally : doing well Objective - Vital Signs Latest vital signs: Vital Signs Temp Pulse Resp BP Pulse Ox 01/27/19 04:00 98.0 F 58 L 16 130/78 01/26/19 22:57 98 F 69 18 123/67 98 01/26/19 20:00 98 F 78 18 137/80 100 01/26/19 16:00 97.8 F 60 16 136/73 01/26/19 14:00 98.0 F 88 16 148/84 01/26/19 10:30 98.0 F 56 L 16 150/85 01/26/19 09:55 52 L 16 154/87 01/26/19 09:20 97.9 F 55 L 18 148/72 95 01/26/19 09:14 61 16 148/91 98 01/26/19 08:58 62 17 148/94 96 01/26/19 08:43 72 16 146/90 97 01/26/19 08:30 97.2 F L 67 17 135/87 99 Intake and Output 01/26/19 01/26/19 01/27/19 14:59 22:59 06:59 Output Total 900 3100 Balance -900 -3100 Output: Urine 900 3100 Uretheral (Lopez) 1400 - Exam Lungs: bilateral: normal Chest: Normal S1, Normal S2 Extremities: Present: normal Abdomen: Present: normal appearance, soft. Absent: distention, tenderness Incision: Present: normal, dry, intact Uterus: Present: normal, firm - Labs Labs: Abnormal Lab Results - Last 24 Hours (Table) 01/26/19 Range/Units 06:49 Alkaline Phosphatase 133 H (38-126) U/L Total Protein 5.5 L (6.3-8.2) g/dL Albumin 3.0 L (3.5-5.0) g/dL Assessment and Plan Assessment: Postoperative day #1. Patient is resting without complaints. Vital signs are stable and she is afebrile. Uterus is firm nontender her incision is intact and dry. CBC is pending at this time. Blood pressures remain good without medications. Plan today is to continue regular diet, encourage ambulation, check a CBC, allow the patient to shower. (1) 37 weeks gestation of Current Visit: No Status: Acute Code(s): Z3A.37 - 37 WEEKS GESTATION OF SNOMED Code(s): 02077223 (2) Gestational hypertension Current Visit: No Status: Acute Code(s): O13.9 - GESTATIONAL HTN W/O SIGNIFICANT PROTEINURIA, UNSP TRIMESTER SNOMED Code(s): 218725903 (3) Elderly multigravida Current Visit: No Status: Acute Code(s): O09.529 - SUPERVISION OF ELDERLY MULTIGRAVIDA, UNSPECIFIED TRIMESTER SNOMED Code(s): 574135305 (4) Previous delivery affecting Current Visit: No Status: Acute Code(s): O34.219 - MATERNAL CARE FOR UNSP TYPE SCAR FROM PREVIOUS DEL SNOMED Code(s): 953481329 (5) Family planning Current Visit: No Status: Acute Code(s): Z30.09 - ENCOUNTER FOR OTH GENERAL CNSL AND ADVICE ON CONTRACEPTION SNOMED Code(s): 122798970 (6) Group B streptococcal carriage complicating Current Visit: No Status: Acute Code(s): O99.820 - STREPTOCOCCUS B CARRIER STATE COMPLICATING SNOMED Code(s): 069670740856453
[2019-01-27 07:20] LABS: Basophils % (A) 0 %; Eosinophils # (A) 0.1 k/uL (0-0.7); Eosinophils % (A) 1 %; HCT 32.9 % (34.0-46.0); Lymphocytes # (A) 1.7 k/uL (1.0-4.8); Lymphocytes % (A) 21 %; MCH 32.5 pg (25.0-35.0); MCHC 33.1 g/dL (31.0-37.0); MCV 98.4 fL (80.0-100.0); Mean Platelet Volume 9.6; Monocytes # (A) 0.4 k/uL (0-1.0); Monocytes % (A) 5 %; Neutrophils # (A) 5.6 k/uL (1.3-7.7); Neutrophils % (A) 71 %; Platelet Count 123 k/uL (150-450); RBC 3.35 m/uL (3.80-5.40); RDW 14.3 % (11.5-15.5); WBC 7.8 k/uL (3.8-10.6)
[2019-01-27 07:24] LABS: HGB 10.9 gm/dL (11.4-16.0)
[2019-01-27] MEDS: SENNOSIDES-DOCUSATE SODIUM 1 EACH TAB PO SCH ×2 (07:30→20:11)
--- NOTE | 2019-01-27 11:48 | P.PN ---
Progress Note - Text Progress Note Date: 01/27/19 38 year old female who is POD#1 and tubal ligation under spinal anesthesia with intrathecal duramorph/fentanyl for post-operative pain management Patient sitting up in bed and doing well. She is without complaints VAS 1-2/10 and mostly when up and moving. Otherwise, while seated she is pain free Patient denies any residual numbness/paresthesia, fever/chills, back pain, itching Patient satisfied with her anesthesia and pain management. Will follow up as indicated
[2019-01-27] MEDS: IBUPROFEN 600 MG TAB PO PRN ×2 (12:56→20:10)
[2019-01-27 23:56] VITALS: TEMP 98.3
[2019-01-28] MEDS: IBUPROFEN 600 MG TAB PO PRN ×2 (04:07→10:00)
--- NOTE | 2019-01-28 06:37 | P.PNOBGPC ---
Subjective - Subjective Patient reports: Reports appetite normal, Reports voiding normally, Reports pain well controlled, Reports ambulating normally : doing well Objective - Vital Signs Latest vital signs: Vital Signs Temp Pulse Resp BP Pulse Ox 01/27/19 23:55 98.3 F 62 15 136/78 97 01/27/19 20:00 98.2 F 71 15 139/80 95 01/27/19 16:00 98.3 F 75 16 130/71 01/27/19 08:00 97.6 F 53 L 16 134/86 - Exam Lungs: bilateral: normal Chest: Normal S1, Normal S2 Extremities: Present: normal Abdomen: Present: normal appearance, soft. Absent: distention, tenderness Incision: Present: normal, dry, intact Uterus: Present: normal, firm - Labs Labs: Abnormal Lab Results - Last 24 Hours (Table) 01/27/19 Range/Units 06:22 RBC 3.35 L (3.80-5.40) m/uL Hgb 10.9 L D (11.4-16.0) gm/dL Hct 32.9 L (34.0-46.0) % Plt Count 123 L (150-450) k/uL Assessment and Plan Assessment: Postoperative day #2. Patient is resting without complaints and desires to go home. Blood pressures are fine without medication. Uterus is firm nontender her incision is intact and dry. CBC showed a normal hemoglobin 10.9 however platelets were 123 so repeat is pending today plan today is to continue routine postoperative care. I'm going to check a CBC is loss her platelets remain above 100 she would like to go home and I can recheck him in a week. (1) 37 weeks gestation of Current Visit: No Status: Acute Code(s): Z3A.37 - 37 WEEKS GESTATION OF SNOMED Code(s): 61397331 (2) Gestational hypertension Current Visit: No Status: Acute Code(s): O13.9 - GESTATIONAL HTN W/O SIGNIFICANT PROTEINURIA, UNSP TRIMESTER SNOMED Code(s): 411755934 (3) Elderly multigravida Current Visit: No Status: Acute Code(s): O09.529 - SUPERVISION OF ELDERLY MULTIGRAVIDA, UNSPECIFIED TRIMESTER SNOMED Code(s): 046167212 (4) Previous delivery affecting Current Visit: No Status: Acute Code(s): O34.219 - MATERNAL CARE FOR UNSP TYPE SCAR FROM PREVIOUS DEL SNOMED Code(s): 077393604 (5) Family planning Current Visit: No Status: Acute Code(s): Z30.09 - ENCOUNTER FOR OTH GENERAL CNSL AND ADVICE ON CONTRACEPTION SNOMED Code(s): 355144063 (6) Group B streptococcal carriage complicating Current Visit: No Status: Acute Code(s): O99.820 - STREPTOCOCCUS B CARRIER STATE COMPLICATING SNOMED Code(s): 223518969533451
--- NOTE | 2019-01-28 06:49 | P.DS ---
Providers Date of admission: 01/26/19 06:03 Expected date of discharge: 01/28/19 Attending physician: Clifford Carpenter Primary care physician: Stated None - Discharge Diagnosis(es) (1) 37 weeks gestation of Current Visit: No Status: Acute (2) Gestational hypertension Current Visit: No Status: Acute (3) Elderly multigravida Current Visit: No Status: Acute (4) Previous delivery affecting Current Visit: No Status: Acute (5) Family planning Current Visit: No Status: Acute (6) Group B streptococcal carriage complicating Current Visit: No Status: Acute Hospital Course: Please see dictated H&P for intimate details of this patient's admission. Brief summary this is a pleasant 38-year-old 3 para 1 female 37 and one sevenths weeks gestation admitted for elective repeat section and tubal ligation for gestational hypertension. Patient is admitted undergoes above- named surgeries. Please see dictated operative note. Postoperative patient does well. Postoperative 1 she did have a CBC which showed her platelets to be 123 and repeat is pending at time of this dictation. Patient's felt be stable for discharge home follow up in 1 week for repeat blood pressure check and repeat platelets. Procedures: Repeat low transverse section and bilateral partial salpingectomy Patient Condition at Discharge: Good Plan - Discharge Summary Discharge Rx Participant: Yes New Discharge Prescriptions: New Ibuprofen [Motrin] 600 mg PO Q6HR PRN #40 tab PRN Reason: Mild Pain Or Fever >= 100.5 HYDROcodone/APAP 5-325MG [[place] 5-325] 2 each PO Q4HR PRN #36 tab PRN Reason: Moderate Pain No Action Pnv,Calcium 72/Iron/Folic Acid [ Plus Tablet] 1 each PO DAILY MDD 1 tab Discharge Medication List Pnv,Calcium 72/Iron/Folic Acid [ Plus Tablet] 1 each PO DAILY MDD 1 tab 12/30/18 [History] HYDROcodone/APAP 5-325MG [[place] 5-325] 2 each PO Q4HR PRN #36 tab 01/28/19 [Rx] Ibuprofen [Motrin] 600 mg PO Q6HR PRN #40 tab 01/28/19 [Rx] Follow up Appointment(s)/Referral(s): Clifford Carpenter MD [STAFF PHYSICIAN] - 02/11/19 8:30 am (Patient also has a visit on March 10 at 2 PM.) Patient Instructions/Handouts: (DC) Activity/Diet/Wound Care/Special Instructions: No heavy lifting or strenuous activities for 6 weeks. No intercourse or anything per vagina. Please call if any fever, chills, excessive vaginal bleeding, and/or abdominal pain. Discharge Disposition: HOME SELF-CARE
[2019-01-28 07:16] LABS: Basophils % (A) 1 %; Eosinophils # (A) 0.2 k/uL (0-0.7); Eosinophils % (A) 3 %; HCT 34.1 % (34.0-46.0); Lymphocytes % (A) 16 %; MCH 33.1 pg (25.0-35.0); MCHC 32.3 g/dL (31.0-37.0); MCV 102.6 fL (80.0-100.0); Macrocytosis Slight; Mean Platelet Volume 8.7; Monocytes # (A) 0.3 k/uL (0-1.0); Monocytes % (A) 5 %; Neutrophils # (A) 4.7 k/uL (1.3-7.7); Neutrophils % (A) 75 %; Platelet Count 132 k/uL (150-450); RBC 3.32 m/uL (3.80-5.40); RDW 14.5 % (11.5-15.5); WBC 6.2 k/uL (3.8-10.6)
[2019-01-28 08:26] VITALS: BP 143/79; PULSE 69; RESP 16
[2019-01-28] MEDS: SENNOSIDES-DOCUSATE SODIUM 1 EACH TAB PO SCH (08:27)
== END 2019-01-28 11:32 | disposition home or self-care (01) | DRG 785 ==
LOC: 4FBP 06:03
PROVIDERS: ADMIT Obstetrics & Gynecology; ATTEND Obstetrics & Gynecology
PROC: 0UB70ZZ Excision of Bilateral Fallopian Tubes, Open Approach (ICD-10-PCS; 2019-01-26)
PROC: 10D00Z1 Extraction of Products of Conception, Low, Open Approach (ICD-10-PCS; principal; 2019-01-26 08:00)
DX: O13.4 Gestational [pregnancy-induced] hypertension without significant proteinuria, complicating childbirth (principal); O34.211 Maternal care for low transverse scar from previous cesarean delivery; O99.824 Streptococcus B carrier state complicating childbirth; O99.72 Diseases of the skin and subcutaneous tissue complicating childbirth; L40.9 Psoriasis, unspecified; Z37.0 Single live birth; Z3A.37 37 weeks gestation of pregnancy; Z30.2 Encounter for sterilization; Z80.9 Family history of malignant neoplasm, unspecified
CPT/HCPCS: 80076; 84550; 85025; 85610; 85730; 86850; 86900; 86901

== ENCOUNTER → 2020-07-15 | Outpatient (CLI) | payer BC ==
--- NOTE | 2020-07-18 08:50 | MM ---
Reason for exam: screening (asymptomatic). Last mammogram was performed 2 years and 10 months ago. History: Patient had first child at age 36. Taking hormonal contraceptives beginning at age 17. Physical Findings: A clinical breast exam by your physician is recommended on an annual basis and results should be correlated with mammographic findings. MG Screening Mammo w CAD Bilateral CC, MLO, and XCCL view(s) were taken. Prior study comparison: September 20, 2017, right breast MG work up mamm w CAD RT. September 20, 2017, bilateral MG screening mammo w CAD. The breast tissue is heterogeneously dense. This may lower the sensitivity of mammography. There are benign appearing vascular calcifications bilaterally, somewhat usual for patient's age, correlate for additional CAD risk factors. There is no discrete abnormality. ASSESSMENT: Benign, BI-RAD 2 RECOMMENDATION: Routine screening mammogram of both breasts in 1 year.
== END | disposition home or self-care (01) ==
LOC: RADMAMWWP 09:52
PROVIDERS: ATTEND Obstetrics & Gynecology
DX: Z12.31 Encounter for screening mammogram for malignant neoplasm of breast (principal)
CPT/HCPCS: 77067

== ENCOUNTER → 2021-01-02 | Outpatient (CLI) | payer BC ==
--- NOTE | 2021-01-03 08:30 | XR ---
Left hip HISTORY: Pain 2 views the left hip Bone mineralization is mildly reduced. There is joint space loss present at the left hip. Mild margin al spurring present at the level of the acetabulum may be present. There are indeterminate calcificat ions in the pelvis. IMPRESSION: Mild osteoarthritis, hip MRI may be of benefit. Additional findings above.
--- NOTE | 2021-01-03 08:38 | XR ---
Lumbar spine HISTORY: Low back pain 3 views lumbar spine There is a slight spinal curvature present. Lumbar vertebral bodies show preserved height. Disc space s are essentially preserved. Sclerosis is present in the posterior elements of the lower lumbar spine . Bone mineralization may be reduced. IMPRESSION: There is facet arthropathy. Gentle spinal curvature. Question osteopenia.
== END | disposition home or self-care (01) ==
LOC: RADXRMAIN 17:07
PROVIDERS: ATTEND Physician Assistant Medical
DX: M47.816 Spondylosis without myelopathy or radiculopathy, lumbar region (principal); M43.8X6 Other specified deforming dorsopathies, lumbar region; M16.12 Unilateral primary osteoarthritis, left hip
CPT/HCPCS: 72100; 73502

== ENCOUNTER → 2021-02-08 | Outpatient (CLI) | payer BC | END | disposition home or self-care (01) | LOC: LABWHC1 12:20 | PROVIDERS: ATTEND Dermatology Dermatopathology | DX: L40.0 Psoriasis vulgaris (principal) | CPT/HCPCS: 36415; 86480 ==

== ENCOUNTER → 2021-10-26 | Outpatient (CLI) | payer BC ==
--- NOTE | 2021-10-31 12:25 | MM ---
Reason for exam: screening (asymptomatic). Last mammogram was performed 1 year and 3 months ago. History: Patient had first child at age 36. Taking hormonal contraceptives beginning at age 17. Physical Findings: A clinical breast exam by your physician is recommended on an annual basis and results should be correlated with mammographic findings. MG Screening Mammo w CAD Bilateral CC and MLO view(s) were taken. Prior study comparison: July 15, 2020, bilateral MG screening mammo w CAD. September 20, 2017, right breast MG work up mamm w CAD RT. The breast tissue is heterogeneously dense. This may lower the sensitivity of mammography. Benign vascular calcifications. No significant changes when compared with prior studies. ASSESSMENT: Benign, BI-RAD 2 RECOMMENDATION: Routine screening mammogram of both breasts in 1 year. Patient should continue monthly self breast exams. A negative report should not preclude additional follow up of suspicious palpable abnormalities.
== END | disposition home or self-care (01) ==
LOC: RADMAMWWP 16:16
PROVIDERS: ATTEND Obstetrics & Gynecology
DX: Z12.31 Encounter for screening mammogram for malignant neoplasm of breast (principal)
CPT/HCPCS: 77067

== ENCOUNTER → 2022-02-01 | Outpatient (CLI) | payer BC | LOC: LABWHC1 11:08 | PROVIDERS: ATTEND Dermatology Dermatopathology | DX: L40.0 Psoriasis vulgaris (principal); Z79.899 Other long term (current) drug therapy | CPT/HCPCS: 36415; 86480 ==

== ENCOUNTER → 2022-11-07 | Outpatient (CLI) | payer BC ==
--- NOTE | 2022-11-08 09:23 | MM ---
Reason for Exam: Screening (asymptomatic). Last screening mammogram was performed 12 month(s) ago. Patient History: Menarche at age 9. First Full-Term at age 36. Late child-bearing (after 30). Hormonal Contraceptives, starting at age 17 for 20 years. Last menstrual period: 10/08/2022 Risk Values: Vanessa 5 year model risk: 1.1%. NCI Lifetime model risk: 14.4%. Prior Study Comparison: 09/20/2017 Right Diagnostic Mammogram, [facility]. 07/15/2020 Bilateral Screening Mammogram, [facility]. 10/26/2021 Bilateral Screening Mammogram, [facility]. Tissue Density: The breast tissue is heterogeneously dense. This may lower the sensitivity of mammography. Findings: Analyzed By CAD. There is no suspicious group of microcalcifications or new suspicious mass in either breast. Overall Assessment: Negative, BI-RAD 1 Management: Screening Mammogram of both breasts in 1 year. A clinical breast exam by your physician is recommended on an annual basis and results should be correlated with mammographic findings. [facility] will attempt to contact patient to return for supplemental views and ultrasound if indicated. Electronically signed and approved by: Dick Flowers DO
== END | disposition home or self-care (01) ==
LOC: RADMAMWWP 09:36
PROVIDERS: ATTEND Obstetrics & Gynecology
DX: Z12.31 Encounter for screening mammogram for malignant neoplasm of breast (principal)
CPT/HCPCS: 77063; 77067

== ENCOUNTER → 2023-01-17 | Outpatient (CLI) | payer BC | END | disposition home or self-care (01) | LOC: LABWHC1 08:00 | PROVIDERS: ATTEND Physician Assistant | DX: L40.0 Psoriasis vulgaris (principal); Z79.899 Other long term (current) drug therapy | CPT/HCPCS: 36415; 86480 ==

== ENCOUNTER → 2024-01-03 | Outpatient (CLI) | payer BC | END | disposition home or self-care (01) | LOC: LABWHC1 16:04 | PROVIDERS: ATTEND Dermatology | DX: L40.0 Psoriasis vulgaris (principal) | CPT/HCPCS: 36415; 86480 ==

== ENCOUNTER → 2024-01-03 | Outpatient (CLI) | payer BC ==
--- NOTE | 2024-01-06 13:44 | MM ---
Reason for Exam: Screening (asymptomatic). Last mammogram was performed 1 year(s) and 2 month(s) ago. Patient History: Menarche at age 9. First Full-Term at age 36. Late child-bearing (after 30). Hormonal Contraceptives, starting at age 17 for 20 years. Risk Values: Vanessa 5 year model risk: 1.2%. NCI Lifetime model risk: 14.3%. Prior Study Comparison: 07/15/2020 Bilateral Screening Mammogram, [facility]. 10/26/2021 Bilateral Screening Mammogram, [facility]. 11/07/2022 Bilateral MG 3D screening mammo w/cad, [facility]. Tissue Density: The breasts are extremely dense, which lowers the sensitivity of mammography. Findings: Analyzed By CAD. The pattern is symmetrical. Benign spherical calcifications are present bilaterally. Vascular calcifications within the left breast . No suspicious groups of microcalcifications, spiculated or lobular masses, architectural distortion or other secondary signs of malignancy are mammographically apparent. Overall Assessment: Benign, BI-RAD 2 Management: Screening Mammogram of both breasts in 1 year. A negative mammogram report should not preclude additional follow up of suspicious palpable abnormalities. Patient should continue monthly self breast exam. A clinical breast exam by your physician is recommended on an annual basis and results should be correlated with mammographic findings. Note on Vanessa scores and lifetime risk: 1. A Vanessa score greater than 3% is considered moderate risk. If this is the case, consider specialist referral to assess eligibility for a risk reducing agent. 2. If overall lifetime risk for the development of breast cancer is 20% or higher, the patient may qualify for future screening with alternating mammogram and breast MRI. Electronically signed and approved by: Jm Gallardo D.O. Radiologis
== END | disposition home or self-care (01) ==
LOC: RADMAMWWP 15:38
PROVIDERS: ATTEND Family Medicine
DX: Z12.31 Encounter for screening mammogram for malignant neoplasm of breast (principal)
CPT/HCPCS: 77063; 77067

== ENCOUNTER → 2024-07-14 | Outpatient (CLI) | payer BC ==
[2024-07-14 19:12] LABS: ALT 21 U/L (8-44); AST 20 U/L (13-35); Albumin 4.5 g/dL (3.8-4.9); Albumin/Globulin Ratio 1.88 Ratio (1.60-3.17); Alkaline Phosphatase 55 U/L (41-126); BUN/Creat Ratio 14.67 Ratio (12.00-20.00); Blood Urea Nitrogen 8.8 mg/dL (9.0-27.0); Calcium 9.3 mg/dL (8.7-10.3); Carbon Dioxide 26.2 mmol/L (21.6-31.8); Chloride 102 mmol/L (96-109); Globulin 2.4 g/dL (1.6-3.3); Glucose 101 mg/dL (70-110); Potassium 4.5 mmol/L (3.5-5.5); Sodium 138 mmol/L (135-145); Total Bilirubin 0.4 mg/dL (0.3-1.2); Total Protein 6.9 g/dL (6.2-8.2)
== END | disposition home or self-care (01) ==
LOC: LABWHC1 14:46
PROVIDERS: ATTEND Physician Assistant
DX: L40.0 Psoriasis vulgaris (principal); Z79.899 Other long term (current) drug therapy
CPT/HCPCS: 36415; 80053

== ENCOUNTER → 2024-11-05 | Outpatient (CLI) | payer BC ==
[2024-11-05 14:50] LABS: ALT 25 U/L (8-44); AST 21 U/L (13-35); Albumin 4.3 g/dL (3.8-4.9); Albumin/Globulin Ratio 1.79 Ratio (1.60-3.17); Alkaline Phosphatase 57 U/L (41-126); Bilirubin, Conjugated <0.20 mg/dL (0.20-0.40); Bilirubin,Unconjugated >0.20 mg/dL (0.20-1.00); Globulin 2.4 g/dL (1.6-3.3); Total Bilirubin 0.4 mg/dL (0.3-1.2); Total Protein 6.7 g/dL (6.2-8.2)
== END | disposition home or self-care (01) ==
LOC: LABWHC1 10:18
DX: L40.0 Psoriasis vulgaris (principal); Z79.899 Other long term (current) drug therapy
CPT/HCPCS: 36415; 80076; 86480

== ENCOUNTER → 2025-01-18 | Outpatient (CLI) | payer BC ==
--- NOTE | 2025-01-19 07:19 | MM ---
Reason for Exam: Screening (asymptomatic). Last mammogram was performed 1 year(s) and 1 month(s) ago. Patient History: Menarche at age 9. First Full-Term at age 36. Late child-bearing (after 30). Premenopausal. Hormonal Contraceptives, starting at age 17 for 20 years. Risk Values: Vanessa 5 year model risk: 1.2%. NCI Lifetime model risk: 14.2%. Prior Study Comparison: 10/26/2021 Bilateral Screening Mammogram, [facility]. 11/07/2022 Bilateral MG 3D screening mammo w/cad, [facility]. 01/03/2024 Bilateral MG 3D screening mammo w/cad, [facility]. Tissue Density: The breasts are heterogeneously dense, which may obscure small masses. Findings: Analyzed By CAD. Benign-appearing vascular calcifications bilaterally are redemonstrated. There are new small benign-appearing round calcifications seen throughout the bilateral breasts. There is no suspicious group of microcalcifications or new suspicious mass in either breast. Overall Assessment: Benign, BI-RAD 2 Management: Screening Mammogram of both breasts in 1 year. Some Advise annual bilateral breast ultrasound surveillance in patients with background dense tissue. Patient should continue monthly self-breast exams. A clinical breast exam by your physician is recommended on an annual basis. This exam should not preclude additional follow-up of suspicious palpable abnormalities. Note on Vansesa scores and lifetime risk: 1. A Vanessa score greater than 3% is considered moderate risk. If this is the case, consider specialist referral to assess eligibility for a risk reducing agent. 2. If overall lifetime risk for the development of breast cancer is 20% or higher, the patient may qualify for future screening with alternating mammogram and breast MRI. [facility], , 01/19/2025 7:15 AM. Electronically signed and approved by: Jean Carlos Smith M.D.
== END | disposition home or self-care (01) ==
LOC: RADMAMWWP 16:03
PROVIDERS: ATTEND Family Medicine
DX: Z12.31 Encounter for screening mammogram for malignant neoplasm of breast (principal); R92.333 Mammographic heterogeneous density, bilateral breasts; Z92.0 Personal history of contraception
CPT/HCPCS: 77063; 77067